=== PATIENT | male | born 1980 | race Hispanic/Latino ===

== ENCOUNTER 2021-05-13 14:40 | Emergency (ER) | payer OTHER ==
[2021-05-13] MEDS ORDERED: TETRACAINE HCL 0.5% 4ML OPTH ONE (15:14)
[2021-05-13] MEDS ORDERED: NA CHLORIDE 0.9% 1,000 ML ONE (15:14)
[2021-05-13] MEDS ORDERED: FLUORESCEIN SODIUM 1 MG/WRAP ONE (16:56)
--- NOTE | 2021-05-13 17:22 | ER ---
Nurse's Notes [facility] Name: Elliott Burleson Age: 41 yrs Sex: Male : 1980 Arrival Date: 05/13/2021 Time: 14:41 Bed 6 Private MD: Diagnosis: Chemical Injury of the Left Eye;Corneal Abrasion of the left eye Presentation: 05/13 14:41 Chief complaint: Patient states: Pt reports that he sat down a large bottle of [employer] ss heavy duty low odor stripper and it splashed up in his eyes, more the left than the right. Pt reports he rinsed his eye before coming to ED, but states he still has discharge coming from his L eye. Pt reports that this occurred 10 minutes prior to arrival and all symptom in R eye have resolved. Coronavirus screen: Client denies travel out of the [place] in the last 14 days. Ebola Screen: Patient denies exposure to infectious person. Patient denies travel to an Ebola-affected area in the 21 days before illness onset. Initial Sepsis Screen: Does the patient meet any 2 criteria? No. Patient's initial sepsis screen is negative. Does the patient have a suspected source of infection? No. Patient's initial sepsis screen is negative. Risk Assessment: Do you want to hurt yourself or someone else? Patient reports no desire to harm self or others. Onset of symptoms was May 13, 2021. 14:41 Method Of Arrival: Ambulatory ss 14:41 Acuity: JENNIFER 2 ss Triage Assessment: 15:51 General: Appears in no apparent distress. Behavior is calm, cooperative. kennedy Historical: - Allergies: 15:04 No Known Allergies; ss - Home Meds: 15:04 None [Active]; ss - PMHx: 15:04 None; ss - PSHx: 15:04 None; ss - Immunization history:: Client reports receiving the 2nd dose of the Covid vaccine. - Social history:: Smoking status: Patient reports the use of cigarette tobacco products, denies chronic smoking, but will smoke occasionally. Screenin:50 Abuse screen: Denies threats or abuse. Denies injuries from another. Nutritional kennedy screening: No deficits noted. Tuberculosis screening: No symptoms or risk factors identified. Fall Risk None identified. Assessment: 14:41 Reassessment: Irrigated bilateral eyes thoroughly upon arrival at eyewash station. Pt ss denies pain, but states that his L eye seems blurry and like there is something in it. 15:18 Reassessment: Candi Lens inserted to L eye at this time. Irrigation with 1000 mL NS at this time. Pt tolerating well. 15:50 Pain: Complains of pain in left eye. kennedy Vital Signs: 14:41 BP 148 / 96; Pulse 100; Resp 16; Pulse Ox 100% on R/A; Weight 86.18 kg; Pain 0/10; ss 16:44 BP 118 / 88; Pulse 87; Resp 17; Pulse Ox 99% on R/A; tw2 ED Course: 14:41 Patient arrived in ED. as 14:44 Frida Christopher, RN is Primary Nurse. tw2 14:50 Sasha Delaney, GERONIMO is Primary Nurse. kennedy 14:52 Driss Patricio PA is PHCP. [facility] 14:52 Duarte Brown MD is Attending Physician. [facility] 15:03 Triage completed. ss 15:04 Arm band placed on left wrist. ss 15:19 Eye irrigation of left eye w/ Candi lens IV tubing. ss 15:50 Patient has correct armband on for positive identification. Placed in gown. kennedy 15:50 No provider procedures requiring assistance completed. kennedy 17:21 Nick Valadez MD is Referral Physician. [facility] 17:28 Patient did not have IV access during this emergency room visit. ss Administered Medications: 15:15 Drug: Tetracaine Drops 0.5 % 1 drops Route: Ophthalmic; Site: left eye; 15:28 Follow up: Response: No adverse reaction 15:18 Drug: NS 0.9% 1000 ml {Note: Administered to L eye VIA candi lens.} Route: IV; Rate: 1 ss bolus; Site: Other; 16:00 Follow up: IV Status: Completed infusion Outcome: 17:22 Discharge ordered by . [facility] 17:28 Discharged to home ambulatory. 17:28 Condition: good 17:28 Discharge instructions given to patient, family, Instructed on discharge instructions, follow up and referral plans. medication usage, Demonstrated understanding of instructions, follow-up care, medications, Prescriptions given X 1. 17:29 Patient left the ED. Signatures: Driss Patricio PA PA Key Thorne Shelby, RN RN ss Frida Christopher, RN RN tw2 Au-Stager, Sasha, RN RN kennedy
--- NOTE | 2021-05-13 17:22 | EDPHYS ---
Physician Documentation [facility] Name: Elliott Burleson Age: 41 yrs Sex: Male : 1980 Arrival Date: 05/13/2021 Time: 14:41 Bed 6 Private MD: ED Physician Duarte Brown HPI: 05/13 14:54 This 41 yrs old Male presents to ER via Ambulatory with complaints of Chemical jmm Exposure In Eye. 14:54 The patient sustained a splash. Onset: The symptoms/episode began/occurred acutely, jmm just prior to arrival. Duration: the symptoms are continuous. Aggravated by nothing. Alleviated by nothing. Associated signs and symptoms: Pertinent positives: pain. This is a 41-year-old male with no known medical problems that presents emerged department with complaints of left eye pain after splash. Patient states he used a dial painter solution which splashed in both eyes. Patient states he irrigated for about 10 minutes while at work with relief to the right eye but still has pain to the left eye. Patient states he is up-to-date on his tetanus immunization.. Historical: - Allergies: 15:04 No Known Allergies; ss - Home Meds: 15:04 None [Active]; ss - PMHx: 15:04 None; ss - PSHx: 15:04 None; ss - Immunization history:: Client reports receiving the 2nd dose of the Covid vaccine. - Social history:: Smoking status: Patient reports the use of cigarette tobacco products, denies chronic smoking, but will smoke occasionally. ROS: 14:54 Constitutional: Negative for fever, chills, and weight loss. jmm 14:54 Eyes: Positive for pain. 14:54 All other systems are negative. Exam: 14:54 Constitutional: This is a well developed, well nourished patient who is awake, alert, jmm and in no acute distress. Head/Face: atraumatic. 14:54 ENT: Moist Mucus Membranes Neck: Trachea midline, Supple Chest/axilla: Normal chest wall appearance and motion. Cardiovascular: Regular rate and rhythm. No edema appreciated Respiratory: Normal respirations, no respiratory distress appreciated Abdomen/GI: Non distended, soft Back: Normal ROM Skin: General appearance color normal MS/ Extremity: Moves all extremities, no obvious deformities appreciated, no edema noted to the lower extremities Neuro: Awake and alert, normal gait Psych: Behavior is normal, Mood is normal, Patient is cooperative and pleasant 14:54 Eyes: Conjunctiva: injected, in the left eye, Corneas: abrasion, that is moderate sized, on the left, a fluorescein strip employed to appreciate the findings. Vital Signs: 14:41 BP 148 / 96; Pulse 100; Resp 16; Pulse Ox 100% on R/A; Weight 86.18 kg; Pain 0/10; ss 16:44 BP 118 / 88; Pulse 87; Resp 17; Pulse Ox 99% on R/A; tw2 MDM: 14:54 Patient medically screened. [facility] 17:13 Data reviewed: vital signs, nurses notes. Counseling: I had a detailed discussion with [facility] the patient and/or guardian regarding: the historical points, exam findings, and any diagnostic results supporting the discharge/admit diagnosis, the need for outpatient follow up, to return to the emergency department if symptoms worsen or persist or if there are any questions or concerns that arise at home. ED course: Poison control was contacted and stated the substance was slightly alkaline. pH strip was used which revealed a pH which appeared neutral. Patient's left eye was irrigated with 1L using a Candi lens of normal saline. Patient states his pain is completely relieved after 30 minutes. Patient did complain of with feeling in his left eye with some slight blurred vision. Fluorescein and Mckeon lamp inspection revealed corneal abrasion. May have been secondary to using Candi lens versus chemical injury. Will treat with ophthalmic antibiotics. Patient advised to follow-up with ophthalmology tomorrow for reevaluation given strict return precautions for increased pain or worsening of his vision.. 05/13 14:54 Order name: [facility]. Order: candi lazo; Complete Time: 15:19 [facility] Administered Medications: 15:15 Drug: Tetracaine Drops 0.5 % 1 drops Route: Ophthalmic; Site: left eye; ss 15:28 Follow up: Response: No adverse reaction kennedy 15:18 Drug: NS 0.9% 1000 ml {Note: Administered to L eye VIA candi lens.} Route: IV; Rate: 1 ss bolus; Site: Other; 16:00 Follow up: IV Status: Completed infusion ss Disposition Summary: 05/13/21 17:22 Discharge Ordered Location: Home [facility] Condition: Stable [facility] Diagnosis - Chemical Injury of the Left Eye jmm - Corneal Abrasion of the left eye [facility] Followup: [facility] - With: Nick Valadez MD - When: 2 - 3 days - Reason: Recheck today's complaints, Continuance of care, Re-evaluation by your physician Discharge Instructions: - Discharge Summary Sheet jmm - Corneal Abrasion jmm - Chemical Burn of the Eyes, Adult [facility] Forms: - Medication Reconciliation Form [facility] - Thank You Letter jm - Antibiotic Education jm - Prescription Opioid Use [facility] Prescriptions: - Erythromycin 5 mg/gram (0.5 %) Ophthalmic Ointment - apply 1 ribbon by OPHTHALMIC route every 8 hours; 1 tube; Refills: 0, Product jm Selection Permitted Signatures: Driss Patricio PA PA jmm Smirch, Shelby, RN RN Sasha Delaney RN kennedy
[2021-05-13 17:45] VITALS: BP 118/88; O2SAT 99
== END 2021-05-13 17:29 | disposition home or self-care (01) ==
LOC: ER 14:40
DX: S05.02XA Injury of conjunctiva and corneal abrasion without foreign body, left eye, initial encounter (principal); X58.XXXA Exposure to other specified factors, initial encounter; Y93.89 Activity, other specified
CPT/HCPCS: 96360; 99283; J7030